=== PATIENT | female | born 1980 | race Caucasian/White ===

== ENCOUNTER 2021-12-04 00:15 | Emergency (ER) | payer SELFPAY ==
[2021-12-04] VITALS (10 sets, daily range): BP systolic 104–145; BP diastolic 62–85
[2021-12-04 00:57] LABS: HEMATOCRIT 38.9 % (37.0-47.0); HEMOGLOBIN 13.1 g/dl (12.0-16.0); IMMATURE GRANULOCYTES 0.6 % (0.0-5.0); MEAN CORPUSCULAR HGB 33.3 pG CALC (26.0-32.0); MEAN CORPUSCULAR HGB CONC 33.7 g/dL CAL (32.0-36.0); NEUT# 11.44 thou/uL (2.00-7.15); RED BLOOD COUNT 3.93 mill/uL (4.20-5.60); RED CELL DISTRI WIDTH 11.5 % (11.5-15.5)
[2021-12-04 01:01] LABS: URINE BILIRUBIN - DIPSTICK NEGATIVE (NEGATIVE); URINE BLOOD DIPSTICK LARGE (NEGATIVE); URINE COLOR YELLOW; URINE GLUCOSE - DIPSTICK NEGATIVE (NEGATIVE); URINE PROTEIN - DIPSTICK 30 mg/dL (NEG-TRACE); URINE UROBILINOGEN - DIPSTICK 0.2 E.U./dL (0.2)
[2021-12-04 01:11] LABS: ALBUMIN 4.8 g/dL (3.2-5.0); ALKALINE PHOSPHATASE 54 u/l (38-126); ANION GAP 17 (6-22 (CALC)); BUN 16 mg/dL (7-17); BUN/CREATININE RATIO 27 (12-20 (CALC)); CARBON DIOXIDE 22 mmol/l (22-30); CHLORIDE 106 mmol/l (95-108); CREATININE 0.6 mg/dL (0.5-1.0); GFR FOR AFR.AMER. > 60 ML/MIN (>=60 (CALC)); GFR OTHER RACES > 60 ML/MIN (>=60 (CALC)); POTASSIUM 3.6 mmol/l (3.5-5.1); SGOT/AST 26 u/l (14-36); SODIUM 142 mmol/l (137-146); TOTAL PROTEIN 7.9 g/dL (6.3-8.2)
[2021-12-04 01:15] LABS: URINE KETONE NEGATIVE (NEGATIVE); URINE LEUK ESTERASE MODERATE (NEGATIVE); URINE NITRITE - DIPSTICK NEGATIVE (Negative)
[2021-12-04 01:16] LABS: URINE BACTERIA MODERATE hpf; URINE EPITHELIAL CELLS MODERATE EPI/hpf (0-FEW); URINE RBC >100 RBC/hpf (0-5); URINE WBC 50-100 WBC/hpf (0-5)
[2021-12-04] MEDS ORDERED: BACTRIM DS1 TAB PO (01:35)
== END 2021-12-04 02:34 | disposition home or self-care (01) | DRG 690 ==
LOC: ED 00:15
PROVIDERS: Emergency Medicine
DX: N39.0 Urinary tract infection, site not specified (principal); B95.7 Other staphylococcus as the cause of diseases classified elsewhere

== ENCOUNTER 2021-12-14 17:52 | Emergency (ER) | payer SELFPAY ==
[~2021-12-14] VITALS: Ht 165.1 cm; Wt 60.0 kg
[~2021-12-14 17:52] MED LIST: BACTRIM DS1 TAB PO
[2021-12-14 18:11] VITALS: BP 114/79
[2021-12-14 18:15] VITALS: BP 119/85
[2021-12-14] MEDS ORDERED: ESTRADIOL VALERATE XX (18:17)
[2021-12-14 18:30] VITALS: BP 123/83
[2021-12-14] MEDS ORDERED: PREDNISONE50 MG PO (18:55)
[2021-12-14 19:00] VITALS: BP 112/81
[2021-12-14 19:32] LABS: HEMATOCRIT 41.6 % (37.0-47.0); MEAN CELL VOLUME 97.2 fL CALC (80.0-100.0); MEAN CORPUSCULAR HGB 32.7 pG CALC (26.0-32.0); MEAN CORPUSCULAR HGB CONC 33.7 g/dL CAL (32.0-36.0); RED BLOOD COUNT 4.28 mill/uL (4.20-5.60); RED CELL DISTRI WIDTH 11.6 % (11.5-15.5)
[2021-12-14 19:43] LABS: ALBUMIN 5.2 g/dL (3.2-5.0); ALKALINE PHOSPHATASE 54 u/l (38-126); ANION GAP 16 (6-22 (CALC)); BILIRUBIN, TOTAL 0.1 mg/dL (0.0-1.4); BUN 10 mg/dL (7-17); BUN/CREATININE RATIO 15 (12-20 (CALC)); CARBON DIOXIDE 26 mmol/l (22-30); CHLORIDE 99 mmol/l (95-108); CREATININE 0.7 mg/dL (0.5-1.0); GFR FOR AFR.AMER. > 60 ML/MIN (>=60 (CALC)); GFR OTHER RACES > 60 ML/MIN (>=60 (CALC)); POTASSIUM 3.7 mmol/l (3.5-5.1); SGOT/AST 36 u/l (14-36); SODIUM 137 mmol/l (137-146)
[2021-12-14 20:09] LABS: URINE BILIRUBIN - DIPSTICK NEGATIVE (NEGATIVE); URINE BLOOD DIPSTICK NEGATIVE (NEGATIVE); URINE COLOR YELLOW; URINE GLUCOSE - DIPSTICK NEGATIVE (NEGATIVE); URINE KETONE NEGATIVE (NEGATIVE); URINE LEUK ESTERASE NEGATIVE (NEGATIVE); URINE PROTEIN - DIPSTICK NEGATIVE (NEG-TRACE); URINE UROBILINOGEN - DIPSTICK 0.2 E.U./dL (0.2)
[2021-12-14 20:11] LABS: URINE NITRITE - DIPSTICK NEGATIVE (Negative)
[2021-12-14] MEDS ORDERED: PEPCID20 MG PO (21:10)
[2021-12-14] MEDS ORDERED: BENADRYL ALLERG25 MG PO (21:10)
[2021-12-14] MEDS ORDERED: MEDDOSEPAK PO (21:10)
[2021-12-14] MEDS ORDERED: BENADRYL A12.5 MG/5 PO (21:30)
[2021-12-14 21:34] VITALS: BP 112/81
== END 2021-12-14 21:52 | disposition home or self-care (01) | DRG 918 ==
LOC: ED 17:52
PROVIDERS: Emergency Medicine
DX: T37.0X5A Adverse effect of sulfonamides, initial encounter (principal)